=== PATIENT | male | born 1960 | race Caucasian/White ===

== ENCOUNTER 2016-08-23 01:57 | Emergency (ER) | payer OTHER ==
[~2016-08-23] VITALS: Ht 172.7 cm; Wt 88.6 kg
[2016-08-23 02:11] VITALS: BP 144/89; PULSE 87; RESP 16; O2SAT 100
[2016-08-23 02:50] LABS: BASOPHILS % (AUTO) 0.7 % (0-3); EOSINOPHILS % (AUTO) 5.1 % (0-5); MONOCYTES % (AUTO) 10.1 % (4-12); Mean Corpuscular Hemoglobin 32.5 pg (27.0-35.0); Mean Corpuscular Volume 95.9 fL (81-100); NEUTROPHILS % (AUTO) 53.5 % (40-74); Platelet Count 282 bil/L (150-400)
--- NOTE | 2016-08-23 03:02 | ED.REPORT ---
HPI-Chest Pain 40 and Over Date of Service Aug 23, 2016 ED Provider: Steven Mcgee MD 55 year old male presents to the ER accompanied by his complaining of several months of intermittent palpitations, worsening tonight. While he was reading this evening he experienced an episode of palpitations, felt a "sinking " sensation in his chest, and became diaphoretic. Symptoms seemed to improve briefly, then returned shortly thereafter. He also reports transient "flushing sensations" throughout his chest and abdomen that seem to be associated with these episodes. Patient denies associated shortness of breath, nausea, vomiting , and productive cough. He admits that he has lately been experiencing more GERD symptoms than is typical for him. Last week he had blood work and ECG done at his PCP's office, but has not received results of the studies. Nursing Notes Stated Complaint: CHEST PRESSURE Chief Complaint: Dysrhythmia/Cardiac Nursing Notes Reviewed: Yes Allergies: Coded Allergies: No Known Allergies (Unverified , 08/23/16) Scheduled Omeprazole (Omeprazole) 20 Mg Tablet.dr 20 MG PO BID General Time Seen by MD: 01:59 Chief Complaint Chest pressure, Other (Palpitations) Hx Obtained From: Patient Arrived By: Walk-in Sudden in Onset?: No Onset Occurred: More than a week ago... ("several months") Symptom Duration: Intermittent Location: : Substernal Quality: Pressure Severity: Current: Moderate Severity: Maximum: Moderate Associated with: Reports: Diaphoresis, Denies: Cough, non-productive, Cough, productive, Nausea, Shortness of Breath , Vomiting Similar Sx Previous: Yes Past Medical History Past Medical History Reports: GERD Smoking History Unknown if Ever Smoker Social History Alcohol Use: "Social" (occasional) Other Social History: Good social support, Ambulatory Status Independent Review of Systems Constitutional: Denies: Chills, Fever Respiratory: Denies: Non-productive cough, Shortness of breath Cardiovascular: Reports: Chest pain, Palpitations GI: Denies: Abdominal pain, Nausea, Vomiting Musculoskeletal: Denies: Extremity pain, Joint pain, Neck pain Skin: Reports Diaphoresis Neurologic: Denies: Headache Complete sys rev & neg: except as marked. Physical Exam Initial Vital Signs Vital Signs (First) Date Time Temp Pulse Resp B/P Pulse Ox O2 Delivery O2 Flow Rate FiO2 08/23/16 02:11 36.9 87 16 144/89 100 Room Air Initial VS: Reviewed Head / Eyes: Atraumatic, Normocephalic Neck: Supple, Non-tender, Full range of motion Extremities: Vascular intact, Neuro intact, No swelling, No tenderness Skin: Warm, Dry, No cyanosis Neurologic: Alert, Oriented, Nonfocal General/Constitutional: Awake, Alert, Well developed, Well nourished Behavior: Positive: Anxious Respiratory / Chest: Breath sounds NL, Breath sounds = bilat, No respiratory distress, No rales, No rhonchi, No wheezing, No stridor, No chest tenderness Cardiovascular: Heart rate NL, Regular rhythm, Heart sounds NL, No murmurs, Peripheral circulation NL, Pulses = bilaterally, No gross BP differential Abdomen: Soft, Non-tender, No guarding, No rebound, No distention Interpretation & Diagnostics Lab Results Interpretation Result Diagram: 08/23/16 0230 08/23/16 0230 Test 08/23/16 02:30 08/23/16 04:15 White Blood Count 7.6th/mm3 (3.8-10.1) Red Blood Count 4.58mil/mm3 (4.40-5.80) Hemoglobin 14.9g/dL (13.8-17.2) Hematocrit 43.9% (41.0-50.0) Mean Corpuscular Volume 95.9fL (81-100) Mean Corpuscular Hemoglobin 32.5pg (27.0-35.0) Mean Corpuscular Hemoglobin Concent 33.9% (32.0-37.0) Red Cell Distribution Width 12.5% (12.3-15.4) Platelet Count 282bil/L (150-400) Neutrophils (%) (Auto) 53.5% (40-74) Lymphocytes (%) (Auto) 30.3% (14-46) Monocytes (%) (Auto) 10.1% (4-12) Eosinophils (%) (Auto) 5.1% (0-5) Basophils (%) (Auto) 0.7% (0-3) Prothrombin Time 10.5sec (8.1-12.5) Prothromb Time International Ratio 0.98ratio Sodium Level 138mEq/L (134-144) Potassium Level 3.9mEq/L (3.5-5.2) Chloride Level 102mEq/L (97-108) Carbon Dioxide Level 22mmol/L (18-29) Blood Urea Nitrogen 17mg/dL (6-24) Creatinine 0.93mg/dL (0.76-1.27) Estimat Glomerular Filtration Rate 90mL/min (>59) Glucose Level 137mg/dL (60-99) Calcium Level 8.8mg/dL (8.5-10.1) Magnesium Level 2.1mg/dL (1.6-2.6) Total Bilirubin 0.4mg/dL (0.0-1.2) Aspartate Amino Transf (AST/SGOT) 34U/L (0-50) Alanine Aminotransferase (ALT/SGPT) 36U/L (0-44) Alkaline Phosphatase 70U/L (25-150) Pro-B-Type Natriuretic Peptide 15.72pg/mL (0-121) Total Protein 6.9g/dL (6.4-8.4) Albumin 3.9g/dL (3.4-5.0) Thyroid Stimulating Hormone (TSH) 6.100uIU/mL (0.450-4.500) Troponin T 0.010ug/L (0.0-0.011) ECG Interpretation ECG Interpretation: Sinus rhythm, rate 86 PVC Time: 02:11 Interpreted by: ED physician X-Ray Chest Interpretation Chest Xray Interpretation: Normal. View: Portable, 1 view Interpretation / Wet Read by: Wet read ED physician Re-Eval/Medical Decision Med Decision/Clinical Course 55-year-old with a benign past history presents with palpitations intermittently for several months. He was just seen in his doctor's office and had some baseline labs drawn, but does not know the results. He had an episode tonight and presents. During the course of his stay here, he had another episode while on the monitor, and had no change in his cardiac rhythm, despite his sense of his palpitations occurring at that time. No other abnormalities identified other than trace hypothyroidism. Suspect esophageal source for his sensations. Omeprazole twice a day prescribed. Follow-up with PCP as planned. Holter monitor may be necessary to evaluate further. Time of Eval: 03:51 Re-Evaluation/Progress Note: Patient reports that he had another episode of symptoms. I updated him on the plan of care and need for repeat troponin. Counseled Regarding: Diagnosis, Lab results, Need for follow-up, When/why to return to ED Discharge & Departure Primary Impression: Palpitations Disposition: Home Discharge Condition All VS Reviewed: Yes Condition: Stable Patient Instructions: Gastroesophageal Reflux Disease (DC), Palpitations (ED), Supraventricular Tachycardia (ED) Additional Instructions: Begin omeprazole twice daily. Follow-up with your doctor for potential Holter exam. Your episode tonight was recorded, and did not show any rapid heart rhythm at the time. This may be esophageal in nature, and the omeprazole may help to suppress acid and reduce your symptoms. Contact your doctor today for follow-up next week. Referrals: Humberto Amor MD (PCP) Scribe Attestation Portions of this note were transcribed by Libra Edwards. I, Dr. Mcgee, personally performed the history, physical exam and medical decision-making; I reviewed and confirmed the accuracy of the information in the transcribed note. Signed by: Joe Masterson. 08/23/2016, 05:06 copies to: Humberto Amor MD, Christopher W MD Aug 23, 2016 03:01 LIBRA EDWARDS Aug 23, 2016 03:23
[2016-08-23 03:07] LABS: INR 0.98 ratio
[2016-08-23 03:21] LABS: TROPONIN T 0.01 ug/L (0.0-0.011)
[2016-08-23 03:33] LABS: Magnesium 2.1 mg/dL (1.6-2.6)
[2016-08-23] MEDS ORDERED: Pantoprazole 4 mg/mL 10 mL Inj IVPUSH ONE (03:55)
[2016-08-23 04:52] VITALS: BP 121/74; PULSE 82; RESP 14; O2SAT 96
[2016-08-23] MEDS ORDERED: OMEP20TA86 PO (05:03)
[2016-08-23 05:12] VITALS: BP 118/68; PULSE 80; RESP 12; O2SAT 97
--- NOTE | 2016-08-23 08:43 | DRSVH ---
PROCEDURE: X-RAY CHEST ONE VIEW, PORTABLE ([id number]) INDICATIONS: CHEST PRESSURE TECHNIQUE: One view of the chest was acquired. COMPARISON: None. FINDINGS: Surgical changes and devices: None. Lungs and pleura: No pleural effusions or pneumothorax. There is a small indistinct opacity in the right lung base. Lungs are otherwise clear. Mediastinum: Mediastinal contours appear normal. Heart size is normal. Bones and chest wall: No suspicious bony lesions. Overlying soft tissues appear unremarkable. IMPRESSION: 1. Small indistinct opacity in the right lung base is nonspecific and may represent atelectasis, con fluent vessels, or possible early infection. Dictated by: Gianni Culver M.D. on 08/23/2016 at 8:42 Approved by: Gianni Culver M.D. on 08/23/2016 at 8:42
== END 2016-08-23 05:13 | disposition home or self-care (01) ==
LOC: SED 01:57
DX: R00.2 Palpitations (principal); K21.9 Gastro-esophageal reflux disease without esophagitis